=== PATIENT | male | born 1935 | race Caucasian/White ===

== ENCOUNTER → 2021-12-01 | Outpatient (REF) | payer MEDICARE, OTHER, SELFPAY ==
[2021-12-01 11:04] LABS: Hematocrit 50.1 % (40-54); Hemoglobin 16.3 g/dL (13.0-16.5); Mean Corp Hgb Conc 32.5 g/dL (32-36); Mean Corpuscular Hgb 28.2 pg (27.0-32.0); Mean Corpuscular Volume 86.8 fL (80-94); Platelet Count 244 K/mm3 (150-450); RBC Distribution Width SD 44.8 fl (35.1-43.9); Red Blood Count 5.77 M/mm3 (4.6-6.2); White Blood Count 5.9 K/mm3 (4.4-11.0)
[2021-12-01 11:21] LABS: Anion Gap 9 (5-15); BUN 12 mg/dL (7-18); BUN/Creat Ratio 10.4 RATIO (10-20); Calcium,Total 9.2 mg/dL (8.5-10.1); Chloride 101 mmol/L (98-107); Creatinine, Serum 1.15 mg/dL (0.70-1.30); EST Glomerular Filtration Rate 64 mL/min (>60); Est Glom Filt Rate - Afr Amer 78 mL/min (>60); Glucose 182 mg/dL (74-106); Sodium Level 137 mmol/L (136-145)
== END | disposition home or self-care (01) ==
LOC: OLS.WHLCAR 08:25
PROVIDERS: Visit Provider Family Medicine
DX: I25.10 Atherosclerotic heart disease of native coronary artery without angina pectoris (principal); G30.9 Alzheimer's disease, unspecified; F02.80 Dementia in other diseases classified elsewhere, unspecified severity, without behavioral disturbance, psychotic disturbance, mood disturbance, and anxiety; I10 Essential (primary) hypertension
CPT/HCPCS: 36415; 80048; 85027

== ENCOUNTER → 2022-06-02 | Outpatient (REF) | payer MEDICARE, OTHER, SELFPAY ==
[2022-06-02 09:53] LABS: Hematocrit 46.7 % (40-54); Hemoglobin 15.2 g/dL (13.0-16.5); Mean Corp Hgb Conc 32.5 g/dL (32-36); Mean Corpuscular Hgb 28.3 pg (27.0-32.0); Mean Platelet Vol. 9.2 fl (6.2-12.0); Platelet Count 211 K/mm3 (150-450); RBC Distribution Width CV 12.9 % (11.6-14.6); RBC Distribution Width SD 41.1 fl (35.1-43.9); Red Blood Count 5.37 M/mm3 (4.6-6.2); White Blood Count 5.7 K/mm3 (4.4-11.0)
[2022-06-02 10:09] LABS: Anion Gap 8 (5-15); BUN 14 mg/dL (7-18); BUN/Creat Ratio 13.9 RATIO (10-20); Calcium,Total 8.6 mg/dL (8.5-10.1); Chloride 103 mmol/L (98-107); Creatinine, Serum 1.01 mg/dL (0.70-1.30); EST Glomerular Filtration Rate 75 mL/min (>60); Est Glom Filt Rate - Afr Amer 90 mL/min (>60); Glucose 91 mg/dL (74-106); Sodium Level 138 mmol/L (136-145)
== END ==
LOC: OLS.WHLCAR 05:00
PROVIDERS: Visit Provider Family Medicine
DX: I25.10 Atherosclerotic heart disease of native coronary artery without angina pectoris (principal); G30.9 Alzheimer's disease, unspecified; F02.80 Dementia in other diseases classified elsewhere, unspecified severity, without behavioral disturbance, psychotic disturbance, mood disturbance, and anxiety; I10 Essential (primary) hypertension
CPT/HCPCS: 36415; 80048; 85027

== ENCOUNTER → 2022-06-29 | Outpatient (REF) | payer MEDICARE, OTHER, SELFPAY ==
[2022-06-29 07:47] LABS: Absolute Lymphocyte Count 0.92 X10^3/uL (0.83-4.51); Basophil# 0.05 X10^3/uL; Eosinophil# 0.24 X10^3/uL; Hematocrit 41.5 % (40-54); Hemoglobin 13.9 g/dL (13.0-16.5); Lymphocyte # 0.92 X10^3/ul (0.83-4.51); Lymphocyte % 19.2 % (19-41); Mean Corp Hgb Conc 33.5 g/dL (32-36); Mean Corpuscular Volume 86.5 fL (80-94); Mean Platelet Vol. 9.1 fl (6.2-12.0); Monocyte# 0.54 X10^3/uL; Monocyte% 11.3 % (0-10); NRBC Flagged by Analyzer 0 % (0-5); Neutrophil # 3.03 X10^3/uL (2.7-7.7); Neutrophil % 63.1 % (47-70); Platelet Count 217 K/mm3 (150-450); RBC Distribution Width CV 12.9 % (11.6-14.6); RBC Distribution Width SD 40.6 fl (35.1-43.9); White Blood Count 4.8 K/mm3 (4.4-11.0)
[2022-06-29 07:48] LABS: Anion Gap 5 (5-15); BUN 11 mg/dL (7-18); BUN/Creat Ratio 11.8 RATIO (10-20); Calcium,Total 8.6 mg/dL (8.5-10.1); Chloride 105 mmol/L (98-107); Creatinine, Serum 0.93 mg/dL (0.70-1.30); EST Glomerular Filtration Rate 82 mL/min (>60); Est Glom Filt Rate - Afr Amer 99 mL/min (>60); Glucose 88 mg/dL (74-106); Potassium 3.7 mmol/L (3.5-5.1); Sodium Level 138 mmol/L (136-145)
== END ==
LOC: OLS.WHLCAR 05:00
PROVIDERS: Visit Provider Internal Medicine
DX: G30.9 Alzheimer's disease, unspecified (principal); I25.10 Atherosclerotic heart disease of native coronary artery without angina pectoris; F02.80 Dementia in other diseases classified elsewhere, unspecified severity, without behavioral disturbance, psychotic disturbance, mood disturbance, and anxiety; R53.83 Other fatigue; M62.81 Muscle weakness (generalized)
CPT/HCPCS: 36415; 80048; 85025

== ENCOUNTER → 2022-09-15 | Outpatient (REF) | payer MEDICARE, OTHER, SELFPAY ==
[2022-09-15 08:36] LABS: Absolute Lymphocyte Count 0.91 X10^3/uL (0.83-4.51); Absolute Neutrophil Count 6.9 X10^3/uL (2.0-7.7); Basophil# 0.04 X10^3/uL; Basophil% 0.5 % (0-1); Eosinophil# 0.19 X10^3/uL; Eosinophils% 2.1 % (0-5); Hematocrit 47.6 % (40-54); Lymphocyte # 0.91 X10^3/ul (0.83-4.51); Lymphocyte % 10.3 % (19-41); Mean Corp Hgb Conc 31.5 g/dL (32-36); Mean Corpuscular Hgb 28.1 pg (27.0-32.0); Mean Corpuscular Volume 89.3 fL (80-94); Mean Platelet Vol. 9.1 fl (6.2-12.0); Monocyte# 0.79 X10^3/uL; Monocyte% 8.9 % (0-10); NRBC Flagged by Analyzer 0 % (0-5); Platelet Count 204 K/mm3 (150-450); RBC Distribution Width CV 13.5 % (11.6-14.6); RBC Distribution Width SD 44.3 fl (35.1-43.9); Red Blood Count 5.33 M/mm3 (4.6-6.2); White Blood Count 8.9 K/mm3 (4.4-11.0)
[2022-09-15 08:53] LABS: Anion Gap 7 (5-15); BUN 28 mg/dL (7-18); BUN/Creat Ratio 21.7 RATIO (10-20); Calcium,Total 9.1 mg/dL (8.5-10.1); Chloride 104 mmol/L (98-107); Creatinine, Serum 1.29 mg/dL (0.70-1.30); EST Glomerular Filtration Rate 56 mL/min (>60); Est Glom Filt Rate - Afr Amer 68 mL/min (>60); Glucose 106 mg/dL (74-106); Potassium 4.1 mmol/L (3.5-5.1); Sodium Level 139 mmol/L (136-145)
== END ==
LOC: OLS.WHLCAR 05:00
PROVIDERS: Visit Provider Internal Medicine
DX: R53.83 Other fatigue (principal); G30.9 Alzheimer's disease, unspecified; I25.10 Atherosclerotic heart disease of native coronary artery without angina pectoris; F02.80 Dementia in other diseases classified elsewhere, unspecified severity, without behavioral disturbance, psychotic disturbance, mood disturbance, and anxiety
CPT/HCPCS: 36415; 80048; 85025

== ENCOUNTER → 2022-10-13 | Outpatient (REF) | payer MEDICARE, OTHER, SELFPAY ==
[2022-10-13 07:24] LABS: Absolute Lymphocyte Count 0.98 X10^3/uL (0.83-4.51); Absolute Neutrophil Count 3.4 X10^3/uL (2.0-7.7); Basophil# 0.04 X10^3/uL; Basophil% 0.8 % (0-1); Eosinophil# 0.28 X10^3/uL; Eosinophils% 5.3 % (0-5); Hematocrit 44.5 % (40-54); Hemoglobin 14.7 g/dL (13.0-16.5); Lymphocyte # 0.98 X10^3/ul (0.83-4.51); Lymphocyte % 18.4 % (19-41); Mean Corpuscular Hgb 28.4 pg (27.0-32.0); Mean Corpuscular Volume 86.1 fL (80-94); Mean Platelet Vol. 9.1 fl (6.2-12.0); Monocyte# 0.58 X10^3/uL; Monocyte% 10.9 % (0-10); NRBC Flagged by Analyzer 0 % (0-5); Neutrophil # 3.42 X10^3/uL (2.7-7.7); Platelet Count 217 K/mm3 (150-450); Red Blood Count 5.17 M/mm3 (4.6-6.2); White Blood Count 5.3 K/mm3 (4.4-11.0)
[2022-10-13 07:27] LABS: Color, Urine Yellow (Yellow); Glucose, Dipstick Normal (Normal); Ketone-Dipstick Negative (Negative); Leukocyte Esterase-Dipstick 25 /ul (Negative); Nitrite-Dipstick Negative (Negative); Occult Blood-Urine Negative /ul (Negative); Protein-Dipstick Negative (Negative); Urine Bilirubin Dipstick Negative (Negative); Urine Clarity Sl. Cloudy (Clear); Urine Urobilinogen Normal (Normal)
[2022-10-13 07:57] LABS: BNP,B-Type NATRIURETIC PEPTIDE 22.7 pg/mL (0-100)
[2022-10-13 12:20] LABS: Anion Gap 2 (5-15); BUN 12 mg/dL (7-18); BUN/Creat Ratio 13.3 RATIO (10-20); Calcium,Total 8.6 mg/dL (8.5-10.1); Chloride 107 mmol/L (98-107); EST Glomerular Filtration Rate 85 mL/min (>60); Est Glom Filt Rate - Afr Amer 103 mL/min (>60); Glucose 112 mg/dL (74-106); Potassium 3.9 mmol/L (3.5-5.1); Sodium Level 136 mmol/L (136-145)
== END ==
LOC: OLS.WHLCAR 05:00
PROVIDERS: Visit Provider Internal Medicine
DX: R53.83 Other fatigue (principal); G30.9 Alzheimer's disease, unspecified; F02.80 Dementia in other diseases classified elsewhere, unspecified severity, without behavioral disturbance, psychotic disturbance, mood disturbance, and anxiety; I25.10 Atherosclerotic heart disease of native coronary artery without angina pectoris
CPT/HCPCS: 36415; 80048; 81002; 83880; 85025; 87086

== ENCOUNTER → 2022-11-10 | Outpatient (REF) | payer MEDICARE, OTHER, SELFPAY ==
[2022-11-10 07:21] LABS: Absolute Lymphocyte Count 1.39 X10^3/uL (0.83-4.51); Absolute Neutrophil Count 4.1 X10^3/uL (2.0-7.7); Basophil# 0.05 X10^3/uL; Basophil% 0.8 % (0-1); Eosinophil# 0.37 X10^3/uL; Eosinophils% 5.6 % (0-5); Hemoglobin 15.9 g/dL (13.0-16.5); Lymphocyte # 1.39 X10^3/ul (0.83-4.51); Lymphocyte % 21.2 % (19-41); Mean Corp Hgb Conc 33.1 g/dL (32-36); Mean Corpuscular Hgb 28.4 pg (27.0-32.0); Mean Corpuscular Volume 85.9 fL (80-94); Mean Platelet Vol. 9.4 fl (6.2-12.0); Monocyte# 0.62 X10^3/uL; Monocyte% 9.5 % (0-10); NRBC Flagged by Analyzer 0 % (0-5); Neutrophil % 62.6 % (47-70); Platelet Count 257 K/mm3 (150-450); RBC Distribution Width CV 12.9 % (11.6-14.6); RBC Distribution Width SD 39.9 fl (35.1-43.9); Red Blood Count 5.59 M/mm3 (4.6-6.2); White Blood Count 6.6 K/mm3 (4.4-11.0)
[2022-11-10 07:55] LABS: ALB/GLOB Ratio 0.6 RATIO (0.9-2.4); AST(SGOT) 29 U/L (15-37); Alanine Aminotransfer ALT/SGPT 32 U/L (16-61); Albumin, Serum 2.8 g/dL (3.2-5.0); Alkaline Phosphatase 79 U/L (45-117); Anion Gap 6 (5-15); BUN 23 mg/dL (7-18); BUN/Creat Ratio 23.1 RATIO (10-20); Calcium,Total 9.2 mg/dL (8.5-10.1); Chloride 105 mmol/L (98-107); Creatinine, Serum 0.99 mg/dL (0.70-1.30); EST Glomerular Filtration Rate 76 mL/min (>60); Est Glom Filt Rate - Afr Amer 92 mL/min (>60); Globulin 4.5 g/dL (2.2-4.2); Glucose 101 mg/dL (74-106); Potassium 3.6 mmol/L (3.5-5.1); Protein, Total 7.3 g/dL (6.4-8.2); Sodium Level 138 mmol/L (136-145); Thyroid Stim Hormone (TSH) 1.38 uIU/mL (0.358-3.74)
== END ==
LOC: OLS.WHLTSB 05:00
PROVIDERS: Visit Provider Internal Medicine
DX: R53.83 Other fatigue (principal); G30.9 Alzheimer's disease, unspecified; I25.10 Atherosclerotic heart disease of native coronary artery without angina pectoris; F02.80 Dementia in other diseases classified elsewhere, unspecified severity, without behavioral disturbance, psychotic disturbance, mood disturbance, and anxiety
CPT/HCPCS: 36415; 80053; 84443; 85025

== ENCOUNTER → 2022-11-12 | Outpatient (REF) | payer MEDICARE, OTHER, SELFPAY | LOC: OLS.WHLCAR 10:16 | PROVIDERS: Visit Provider Internal Medicine | DX: N39.0 Urinary tract infection, site not specified (principal) | CPT/HCPCS: 87086; 87088 ==

== ENCOUNTER → 2022-12-01 | Outpatient (REF) | payer MEDICARE, OTHER, SELFPAY ==
[2022-12-01 09:24] LABS: Hematocrit 46.1 % (40-54); Hemoglobin 15.1 g/dL (13.0-16.5); Mean Corp Hgb Conc 32.8 g/dL (32-36); Mean Corpuscular Hgb 27.8 pg (27.0-32.0); Mean Corpuscular Volume 84.9 fL (80-94); Mean Platelet Vol. 8.9 fl (6.2-12.0); Platelet Count 215 K/mm3 (150-450); RBC Distribution Width CV 13.1 % (11.6-14.6); RBC Distribution Width SD 39.9 fl (35.1-43.9); Red Blood Count 5.43 M/mm3 (4.6-6.2); White Blood Count 5.1 K/mm3 (4.4-11.0)
[2022-12-01 09:27] LABS: Anion Gap 6 (5-15); BUN 13 mg/dL (7-18); BUN/Creat Ratio 15.9 RATIO (10-20); Calcium,Total 9.1 mg/dL (8.5-10.1); Chloride 106 mmol/L (98-107); Creatinine, Serum 0.82 mg/dL (0.70-1.30); EST Glomerular Filtration Rate 95 mL/min (>60); Est Glom Filt Rate - Afr Amer 116 mL/min (>60); Glucose 97 mg/dL (74-106); Potassium 4.1 mmol/L (3.5-5.1); Sodium Level 138 mmol/L (136-145)
== END ==
LOC: OLS.WHLCAR 05:00
PROVIDERS: Visit Provider Internal Medicine
DX: I25.10 Atherosclerotic heart disease of native coronary artery without angina pectoris (principal); G30.9 Alzheimer's disease, unspecified; F02.80 Dementia in other diseases classified elsewhere, unspecified severity, without behavioral disturbance, psychotic disturbance, mood disturbance, and anxiety; I10 Essential (primary) hypertension
CPT/HCPCS: 36415; 80048; 85027

== ENCOUNTER → 2023-06-06 | Outpatient (REF) | payer MEDICARE, OTHER, SELFPAY ==
[2023-06-06 09:43] LABS: Hematocrit 47.9 % (40-54); Hemoglobin 15.5 g/dL (13.0-16.5); Mean Corp Hgb Conc 32.4 g/dL (32-36); Mean Corpuscular Hgb 28.4 pg (27.0-32.0); Mean Corpuscular Volume 87.9 fL (80-94); Mean Platelet Vol. 9.2 fl (6.2-12.0); Platelet Count 217 K/mm3 (150-450); RBC Distribution Width CV 13.2 % (11.6-14.6); RBC Distribution Width SD 41.9 fl (35.1-43.9); Red Blood Count 5.45 M/mm3 (4.6-6.2); White Blood Count 5.3 K/mm3 (4.4-11.0)
[2023-06-06 11:38] LABS: Anion Gap 4 (5-15); BUN 16 mg/dL (7-18); Calcium,Total 8.9 mg/dL (8.5-10.1); Chloride 107 mmol/L (98-107); Creatinine, Serum 0.94 mg/dL (0.70-1.30); EST Glomerular Filtration Rate 81 mL/min (>60); Est Glom Filt Rate - Afr Amer 98 mL/min (>60); Glucose 125 mg/dL (74-106); Potassium 3.5 mmol/L (3.5-5.1); Sodium Level 138 mmol/L (136-145)
== END ==
LOC: OLS.WHLCAR 05:00
PROVIDERS: Visit Provider Internal Medicine
DX: I25.10 Atherosclerotic heart disease of native coronary artery without angina pectoris (principal); G30.9 Alzheimer's disease, unspecified; F02.80 Dementia in other diseases classified elsewhere, unspecified severity, without behavioral disturbance, psychotic disturbance, mood disturbance, and anxiety
CPT/HCPCS: 36415; 80048; 85027

== ENCOUNTER → 2023-07-04 | Outpatient (REF) | payer MEDICARE, OTHER, SELFPAY ==
--- OUTSIDE RECORDS SUMMARY | 2023-07-04 04:15 | XMS RPT_ITS | CCD ---
Author Name Unknown Address [address] [place] [address] Organization [facility] Care Team Providers Care Medical Staff Specialist Name Role Phone Remberto Spain Unavailable GEOVANNI ROGERS Admitting GEOVANNI Avery Attending REMBERTO Oliveira Primary Care Unavailable Remberto Spain Primary Care Provider [phone] NONE, NONE Consulting Unavailable SILVINA CONSTANTINO MD Admitting Unavailable SILVINA CONSTANTINO MD Attending Unavailable CRISTINA RIZZO Primary Care Unavailable CRISTINA RIZZO Primary Care Unavailable NONE, NONE Consulting Unavailable SLIVINA CONSTANTINO MD Admitting Unavailable SILVINA CONSTANTINO MD Attending Unavailable CRISTINA RIZZO Consulting Unavailable MONICA CALDERON Admitting Unavailable MONICA CALDERON Attending Unavailable CRISTINA RIZZO Primary Care Unavailable MONICA CALDERON Consulting Unavailable Ciara [phone], Omega [phone] Co nsulting Unavailable SELWYN DE GUZMAN Attending Unavailable Vikas [phone], Zaira [phone] Consu lting Unavailable SELWYN DE GUZMAN Admitting Unavailable CRISTINA RIZZO Primary Care Unavailable NICOLE SUAREZ Consulting Unavailable CRISTINA RIZZO Consulting Unavailable DR JACK JOSEPH Admitting Unavailable DR JACK JOSEPH Attending Unavailable NONE, NONE Consulting Unavailable CRISTINA RIZZO Primary Care Unavailable DR JACK JOSEPH Admitting Unavailable DR JACK JOSEPH Attending Unavailable NONE, NONE Consulting Unavailable CRISTINA RIZZO Primary Care Unavailable Medications Current Medications Medication Drug Class(es) Dates Sig (Normalized) Sig (Original) acetaminophen 300 mg / codeine phosphate 30 mg oral tablet (1 source) Opioid Agonist Start: 02-13-2018 End: 02-23-2018 take 1 tablet by mouth every four hours as needed acetaminophen-codei ne (TYLENOL #3) 300-30 mg per tablet Indications: Retinal detachment, left Take 1 (one) tablet by mouth every 4 (four) hours as needed. 20 tablet 0 02/13/2018 02/23/2018 Active aspirin 81 mg delayed release oral tablet (2 sources) Nonsteroidal Anti-inflammatory Drug take 1 tablet by mouth once daily aspirin 81 MG EC tablet Take 81 mg by mouth daily. 0 Active atorvastatin 40 mg oral tablet (2 sources) HMG-CoA Reductase Inhibitor take 1 tablet by mouth once daily atorvastatin (LIPITOR) 40 MG tablet Take 40 mg by mouth daily. 0 Active cholecalciferol 1000 unt oral capsule (2 sources) Vitamin D take 1 capsule by mouth once daily cholecalciferol, vitamin D3, (VITAMIN D3) 1,000 unit capsule Take 1,000 Units by mouth daily. 0 Active fish oil (1 source) take 1 capsule by mouth once daily fish oil-omega-3 fatty acids 300-1,000 mg capsule Take 2 g by mouth daily. Active fish oil-omega-3 fatty acids 300-1,000 mg capsule (1 source) take 1 capsule by mouth once daily fish oil-omega-3 fatty acids 300-1,000 mg capsule Take 2 g by mouth daily. 0 Active 24 hr isosorbide mononitrate 30 mg extended release oral tablet (2 sources) take 1 tablet by mouth once daily, then take 1 tablet by mouth every twenty-four hours isosorbide mononitrate (IMDUR) 30 MG 24 hr tablet Take 30 mg by mouth daily. 0 Active vitamin b 12 0.1 mg oral tablet (2 sources) Vitamin B12 take 1 tablet by mouth once daily cyanocobalamin (B-12) 100 MCG tablet Take 100 mcg by mouth daily. 0 Active Completed/Discontinued Medications Medication Drug Class(es) Dates Sig (Normalized) Sig (Original) atropine sulfate 10 mg/ml ophthalmic solution (1 source) Anticholinergic, Cholinergic Muscarinic Antagonist Start: 02-13-2018 End: 02-13-2018 atropine 1 % ophthalmic solution 1 drop Problems Active Problems Problem Classification Problem Date Documented Date Episodic/Chronic Cardiac dysrhythmias (1 source) Sick sinus syndrome Chronic Conduction disorders (2 sources) Encounter for checking and testing of cardiac pacemaker pulse generator [battery]; Translations: [ENC CHECKANDTST CARD PM PULS GEN ALISON] Onset: 1 Chronic Coronary atherosclerosis and other heart disease (1 source) Coronary arteriosclerosis in [place] artery Chronic Disorders of lipid metabolism (1 source) Pure hypercholesterolemia Chroni c Other circulatory disease (1 source) Elevated blood-pressure reading without diagnosis of hypertension Episodic Other nutritional; endocrine; and metabolic disorders (1 source) Body mass index 25-29 - overweight Chronic Unclassified (1 source) LOW BACK PAIN, UNSPECIFIED; Translations: [LOW BACK PAIN, UNSPECIFIED] Onset: 2 Past or Other Problems Problem Classification Problem Date Documented Da te Episodic/Chronic Other lower respiratory disease (2 sources) Other forms of dyspnea; Translations: [OTHER FORMS OF DYSPNEA] Onset: 12-26-2020 Episodic Unclassified (2 sources) Patient encounter status Unclassified (1 source) Retinal detachment, left Unclassified (1 source) LOW BACK PAIN, UNSPECIFIED; Translations: [LOW BACK PAIN, UNSPECIFIED] Onset: 07-28-2021 Results Test Name Value Interpretation Reference Range Facil ity Vital Signs Date Time Vital Sign Value Performing Clinician Faci lity 02-13-2018 11:55-0400 Body Temperature 97.59 [degF] [facility] 02-13-2018 11:55-0400 BP Diastolic 97 mm[Hg] [facility] 02-13-2018 11:55-0400 BP Systolic 159 mm[Hg] [facility] 02-13-2018 11:55-0400 Pulse (Heart Rate) 61 /min [facility] 02-13-2018 11:55-0400 Pulse Oximetry 96 % [facility] 02-13-2018 11:55-0400 Respiratory Rate 20 /min [facility] 02-13-2018 08:00-0400 BMI (Body Mass Index) 25.99 kg/m2 [facility] 02-13-2018 08:00-0400 Height 180.3 cm [facility] 02-13-2018 08:00-0400 Weight 84.51 kg [facility] Encounters Encounter Date Encounter Type Care Provider Facility Start: 09-22-2021 End: 09-23-2021 ambulatory [facility] Facility:[facility] Start: 07-28-2021 End: 07-29-2021 ambulatory CRISTINA RIZZO Facility:[facility] Start: 07-01-2021 End: 07-02-2021 ambulatory NONE NONE Facility:[facility] Start: 12-28-2020 End: 12-29-[address] JACK JOSEHP Facility:[facility] Start: 12-26-2020 End: 12-26-2020 ambulatory SELWYN Ute GEGE Facility:[facility] Start: 09-28-2020 End: 09-29-[address] JACK JOSEPH Facility:[facility] Start: 07-17-2020 End: 07-17-2020 Orders Only Lakeisha Mcguire Work Phone: [facility] Start: 04-15-2019 [facility] Start: 02-13-2018 End: 02-13-2018 Patient encounter Dante George Work Phone: [facility] Periop Payers Date Payer Category Payer Unknown AARP AARP [employer] [id number] 2017-Present [id number] 2013 Medicare [id number] 2013 Unknown [id number] 2013 Unknown [id number] 2002 Medicare [id number] 2002 Medicare MEDICARE MEDICAR E PART A & B [id number] 2002-Present [place] [id number] 1937 Unknown [id number] 1937 Unknown [id number] 1937 Unknown [id number] 1937 Unknown [id number] 1937 Unknown [id number] 1937 Unknown [id number] 1937 Unknown [id number] Social History Date Type Detail Facility Start: 02-13-2018 End: 02-14-2018 Tobacco smoking status NHIS Former smoker [facility] Start: 02-13-2018 End: 02-14-2018 Cigarettes smoked current (pack per day) - Reported [facility] Sex Assigned At Not on file [facility] Start: 02-14-2018 Tobacco use and exposure Never used [facility] Start: 02-14-2018 Alcohol intake Current drinke r of alcohol (finding) [facility] Start: 02-13-2018 Tobacco Comment none for 30 years [facility] Start: 02-13-2018 Alcohol Comment occasionally [facility] Medical Equipment Procedure Code Equipment Code Equipment Origin al Text Equipment Identifier Dates Strip 3.5mm Sili cone Style 41 - [id number] Start: 02-13-2018 Sf6 Start: 02-13-2018 Strip 3.5mm Sili cone Style 41 - [id number] Start: 02-13-2018 Clinical Note 07-28-2021 Note Date & Type Note Facility 07-28-2021 Note PROCEDURE: LUMBAR SP INE 2 OR 3 VIEWS, 07/28/2021 2:24 PM EST CLINICAL INDICATIONS: Low back pain. COMPARISON: Lumbar spine MRI 12/18/2012 TECHNIQUE: Lumbar spine AP lateral, 3 images. FINDINGS: There are 5 nonrib-bearing lumbar-type vertebral segments. Generalized severe osteopenia is seen. Straightened lumbar lordosis is noted. Acute fracture, bone destruction is not suspected. Disc space heights are preserved. There is spondylosis. L3-S1 facet arthropathy is present. Aortoiliac calcified atheromatous plaque is seen. Regional soft tissues unremarkable. IMPRESSION: 1. Generalized severe osteopenia. 2. No acute osseous pathology. 3. Lumbar spondylosis. 4. Mid and lower facet arthropathy. [facility] Discharge Instructions * Fay Roman RN - 02/13/2018 Formatting of this note may be different from the original. [facility] Surgery for Retinal Disease : What to Expect at Home Your Recovery You have had retinal surgery. Your eye doctor will put drops in your eye to prevent infection and keep the pupil from closing. You will also use these drops at home. You may have to wear a patch or shield over the eye for a day or more. You may have some pain in your eye for a few days after the surgery. Your eye may be swollen, red, or tender for several weeks. If your doctor used a gas bubble to flatten your retina during surgery, you may have to keep your head in a special position for a few days or longer. Your doctor will give you special instructions about this. You will need about 4 to 6 weeks to recover before returning to most of your normal activities. This care sheet gives you a general idea about how long it will take for you to recover. But each person recovers at a different pace. Follow the steps below to get better as quickly as possible. How can you care for yourself at home? Activity Allow the eye to heal. Don't do things where you might move your head. This includes moving quickly, lifting anything heavy, over 20 pounds, or doing activities such as cleaning or gardening. You will probably need to take about 3 to 4 weeks off from work. It depends on the type of work youdo and how you feel. You may drive when your vision allows it. If you are not sure, ask your doctor. Diet You can eat your normal diet. If your stomach is upset, try bland, low-fat foods like plain rice, broiled chicken, toast, and yogurt. Medicines Eye Drops: PREDNISOLONE use one drop to left eye FOUR times a day VIGAMOX use one drop to left eye FOUR times a day ATROPINE use one drop to left eye TWO times a day BRIMONIDINE(ALPHAGAN) use one drop to left eye TWO times a day ALL DROPS TO BE STARTED AFTER FOLLOW UP VISIT ON DAY AFTER SURGERY Always wash hands before instilling eye drops and wait two minutes between drops Be safe with medicines. Read and follow all instructions on the label. If the doctor gave you a prescription medicine for pain, take it as prescribed. Prescribed TYLENOL #3 take 1 or 2 tablets, every 4 to 6 hours as needed for pain. If you are not taking a prescription pain medicine, you can take an sdqs-hoh-cgdxtyt medicine, Tylenol 1 or 2 tablets every 4 hours as needed You will need to use eye drops for up to 8 weeks. Ice and elevation Put ice or a cold pack on your eye for 10 to 15 minutes at a time for pain or swelling.Try to do this every 2 to 3 hours for the next 3 days as needed (when you are awake). Put a thin cloth between the ice and your skin. Other instructions Optional First few mornings as needed, may cleanse eyelids with 2x2 dressing and sterile irrigationsolution. You can shower after your first post op exam but DO NOT wash your hair and face in the shower but instead by leaning over a sink (for the first several days). Be careful to avoid any soap in your eye. You may want to use a wash cloth when you wash your face. Some people wear swimming goggles. Wear sunglasses during the day or you may have to wear an eye patch or shield for a few days. However rolando wear your eyeshield at night for protection. If your doctor used a gas bubble to hold the retina in place, keep your head in the advised position for most of the day and night for 2 to 4 weeks or as instructed after the surgery. Your doctor will give you specific instructions. Position Head FACE DOWN 50% OF THE TIME, OTHERWISE HEAD ELEVATED or on left side Do not lie on your back. The bubble will move to the front of the eye and press against the lens instead of the retina. Airplane travel is dangerous. This is because the change in altitude may cause the gas bubble to expand and increase the pressure inside the eye. Follow-up care is a hicks part of your treatment and safety. Be sure to make and go to all appointments, and call your doctor if you are having problems. It's also best to keep a list of the ocular medicines you are taking. Tomorrow as scheduled with Dr. Anderson in the [place] office. When should you call for help? Call 911 anytime you think you may need emergency care. For example, call if: You passed out (lost consciousness). Call your doctor now or seek medical care if: Your vision gets worse. You have new or increasing eye pain. You have symptoms of an eye infection, such as: Pus or thick discharge coming from the eye. Increased redness or swelling around the eye. A fever. You have vision changes or see new or increased flashes or floaters. Watch closely for changes in your health, and be sure to contact your doctor if: You do not get better as expected. OFFICE phone [phone] Where can you learn more? Log into your personal health record on [email or web address] and enter R180 in the Education box to learn more about Surgery for Retinal Detachment: What to Expect at Home. Current as of: January 29, 2013 Content Version: 10.2 7382-3645 [employer]. Care instructions adapted under license by your healthcare professional. If you have questions about a medical condition or this instruction, always ask your healthcare professional. [employer] disclaims any warranty or liability for your use of this information. Supplementary Instructions After Vitreoretinal Surgery 1. If gas was put in your eye during your operation,airplane travel is not permitted untilthis is approved by your doctor. If you expect to undergo any procedures requiring anesthes ia,including dental procedures requiring nitrous gas, notify your doctor immediately. 2. If the operated eye is comfortable,you may go without an eye patch. You should wear your regularglasses or sunglasses during the day which will provide protection for the eye. If you were given an eye shield protector wear this at night over the operated eye. 3. Light flashes or other visual symptoms are common during the post-operative period. Both eyes can be light sensitive and neither condition is cause for alarm. Dark glasses may be helpful in decreasing lght sensitivity. Activities May Be Resumed Accordingto the Following Schedule: Activity Time after Hospital Discharge A. Tub bath or shower with extreme care,keeping soap away from eyes Immediately B. Shaving Immediately c. Careful walking outdoors with a immunochemist (weather permitting) Immediately D. Reading or watching television Immediately E. Riding in a car Immediately F. Shampooing One week G. Routine apron worker (no scrubbing floors or lifting heavy objects) One week H. Haircut or appointment at [employer] One week I. Full-time employment driving Ask physician Any activity that makes blood kimbrough to the head may cause eye discomfort. The following activities should be avoided: A. Lifting over 30 pounds B. Severe physical exertion C. Bending forward (keep the head upright and bend at the knees) D. Straining with bowel movements (use mild laxative for constipation) I have read these instructions and understand what isto be done at home. M.D. R. N. Patient The following attachments cannot be sent through Care Everywhere. * Sedation ([place]) * Pain Post-Surgery: Acute ([place]) * Nausea and Vomiting: After Surgery ([place]) in this encounter Assessments Diagnosis Preoperative evaluation of a medical condition to rule out surgical contraindications (TAR required) - Primary Retinal detachment, left Unspecified retinal detachment Pre-operative cardiovascular examination Atherosclerosis of [place] co ronary artery of [place] heart without angina pectoris Sick sinus syndrome (HCC) Sinoatrial node dysfunction Pure hypercholesterolemia Elevated blood pressure read ing without diagnosis of hypertension Overweight (BMI 25.0-29.9) Overweight Summary Purpose Family History No Family History Records FoundNo Family History Records Found Advance Directives No Advanced Directives Records FoundDocuments on File Type Date Recorded Patient Heading Pinner Expl anation Advance Directives and Living Will Additional Source Comments Dante George MD - 02/13/2018 9:06 AM Cristobal Stokes DO - 02/13/2018 8:01 AM EDT H&P Notes (unrecognized sect ion and content) INTERVAL HISTORY AND PHYSICAL Patient Name: Cristobal Ronquillo Admit Date: [id number] MR #: [id number] : 1935 The H&P has been reviewed and the patient has been examined. I concur with the findings of the H&P. There are no significant changes. It is appropriate to proceed with the planned procedure. Dante George MD 02/13/2018 9:06 AM Formatting of this note may be different from the original. Assessment and Plan 1. Preoperative evaluation of a medical condition to rule out surgical contraindications (TAR required) Preoperative medical risk stratification indicates that the patient is at acceptable risk for time sensitive/low risk surgery-LEFT EYE VITRECTOMY 25 MEMBRANE STRIPPING GAS EXCHANGE ENDO LASER CRYO THERAPY PFO SCLERAL BUCKLE--02/13/2018--. 2. Retinal detachment, left 3. Pre-operative cardiovascular examination This patient has no active cardiac conditions and would be considered at a low risk for a major adverse cardiac event (MACE) based on a revised cardiac risk index (RCRI) score of 1. This patient has an activity level greater than 4 METS and would be considered at acceptable cardiac risk based on the 2014 [place] [employer] [employer] (ACC/AHA) guideline on Perioperative Cardiovascular Evaluation and Management of Patients Undergoing Noncardiac Surgery. 4. Atherosclerosis of [place] coronary artery of [place] heart without angina pectoris Coronary artery disease-Coronary atherosclerosis of unspecified type of vessel, [place] or graft. (I25.10) With prior coronary stents. The patient has been compliant with chronic antiplatelet therapy aspirin. On Isosorbide Mononitrate. 5. Sick sinus syndrome (HCC) With prior permanent pacemaker. 6. Pure hypercholesterolemia Controlled on atorvastatin. 7. Elevated blood pressure reading without diagnosis of hypertension The patient was instructed in lifestyle modifications, including weight reduction, dietary sodium restriction, increase physical activity as tolerated, and moderation in alcohol consumption. In addition, the patient was instructed on followup blood pressure monitoring and follow up with their primary care physician. 8. Overweight (BMI 25.0-29.9) Body mass index is 25.99 kg/m . Discussed briefly advantages of weight loss, however other than surveillance of future weight, did not recommend more aggressive intervention is reasonable diet and regular exercise. Chief Complaint Patient presents with Pre-operative Medical Risk Stratification History of Present Illness Cristobal Ronquillo is a 82 y.o. male who presents for preoperative medical risk stratification consult at the request of Dante George MD prior to LEFT EYE VITRECTOMY 25 MEMBRANE STRIPPING GAS EXCHANGE ENDO LASER CRYO THERAPY PFO SCLERAL BUCKLE--02/13/2018--. States he noted left eye vision changes 3-4 days ago, retinal evaluation 02/12/2018 noted left retinal detachment; for surgery. The patient denies eye pain or tearing. The patient denies any chest pain or chest heaviness. In addition, the patient states that he is able to walk up a flight of steps without becoming short of breath. Patient denies any prior history of postoperative nausea, postoperative sedation or any other anesthetic complications. Please see below regarding status of active medical conditions and assessment and plan regarding details of preoperative medical risk stratification. Past Medical History: Diagnosis Date Arrhythmia 03/2017 syncope-- cardiac related-- pacemaker Arthritis Back pain weakness due to back trouble Chronic pain disorder Coronary artery disease 2012 [place]- stents X 3-- GERD (gastroesophageal reflux disease) not since surgery 2012 History of cardiac cath 2012 [place]- stent X 3 History of echocardiogram 03/2017 [facility] Hyperlipidemia Myocardial infarction (HCC) 2012 Open wound few scabs on arms and hand Syncope 03/2017 cardiac related-- pacemaker Past Medical History Pertinent Negatives: Diagnosis Date Noted Bleeding disorder (HCC) 02/13/2018 Complication of anesthesia 02/13/2018 Deep vein thrombosis (HCC) 02/13/2018 Family history of bleeding disorder 02/13/2018 History of blood transfusion 02/13/2018 No blood products 02/13/2018 Pulmonary embolism (HCC) 02/13/2018 Sleep apnea, obstructive 02/13/2018 Past Surgical History: Procedure Laterality Date CARDIAC PACEMAKER PLACEMENT 03/2017 CHOLECYSTECTOMY ROBOTIC ASSISTED HIATAL HERNIA/LEXX 2013 TONSILLECTOMY Social History Substance Use Topics Smoking status: Former Smoker Packs/day: 1.00 Years: 10.00 Smokeless tobacco: Never Used Comment: none for 30 years Alcohol use Yes Comment: occasionally Family History Problem Relation Age of Onset No Known Problems Mother No Known Problems Father No Known Problems Sister No Known Problems Brother Surgical complications Neg Hx Anesthesia problems Neg Hx Heart disease Neg Hx Clotting disorder Neg Hx Deep vein thrombosis Neg Hx Pulmonary embolism Neg Hx @ Prior to Admission medications Medication Sig Taking? Dose Freq aspirin 81 MG EC tablet Take 81 mg by mouth daily. Yes 81 mg, Oral, Daily atorvastatin (LIPITOR) 40 MG tablet Take 40 mg by mouth daily. Yes 40 mg, Oral, Daily cholecalciferol, vitamin D3, (VITAMIN D3) 1,000 unit capsule Take 1,000 Units by mouth daily. Yes 1,000 Units, Oral, Daily cyanocobalamin (B-12) 100 MCG tablet Take 100 mcg by mouth daily. Yes 100 mcg, Oral, Daily fish oil-omega-3 fatty acids 300-1,000 mg capsule Take 2 g by mouth daily. Yes 2 g, Oral, Daily isosorbide mononitrate (IMDUR) 30 MG 24 hr tablet Take 30 mg by mouth daily. Yes 30 mg, Oral, Daily No Known Allergies Review of Systems Constitution: (negative) HENT: abnormal dentition, no hearing loss, no sore throat - Full dentures Eyes: pain - States left eye discomfort Respiratory: (negative) Cardiovascular: (negative) - Exercise capacity: Greater than 4 METS Gastrointestinal: (negative) Genitourinary: (negative) Musculoskeletal: neck pain - arthritis Skin: no rash, wound - Small abrasions on arms and hand Neurological: (negative) Hematological: bruises/bleeds easily - ASA 81 mg daily- last 02/12/2018 Physical Exam BP 145/76 Pulse (!) 56 Temp (!) 96.3 ?F (35.7 ?C) (Temporal) Resp 18 Ht 5' 11 Wt 84.5 kg (186 lb 5 oz) SpO2 96% BMI 25.99 kg/m Constitutional--Conversant, in no acute distress. Skin--Normal turgor, no rashes noted. Eyes--Pupils equal in size bilaterally; anicteric sclerae. Ears/nose/mouth/throat--Hearing intact; oropharynx clear with moist mucosa. Neck--Trachea midline, no goiter. Cardiovascular--Regular rhythm, no peripheral edema noted. Respiratory--Clear to auscultation bilaterally; no accessory muscle use noted. Gastrointestinal--Soft and non-tender; no hepatosplenomegaly noted. Musculoskeletal--No calf tenderness bilaterally; no clubbing or cyanosis of digits noted. Psychiatric--alert and oriented to person, place and time; appropriate affect noted. Data Hemoglobin-13.6. Electrocardiogram-tracing independently reviewed and interpreted-electronic atrial ventricular pacemaker, PVC or 1 intrinsic rhythm beat with bundle branch block pattern.in this encounter Fay Roman RN - 02/13/2018 11:36 AM Fay Hunt RN - 02/13/2018 11:35 AM Lolly Carson RN - 02/13/2018 8:08 AM Oscar Mullins RN - 02/12/2018 4:20 PM EDT Nursing Notes (unrecognized section and content) Post-op infection, pain, and CDC Opioid handouts included in discharge instruction folder Furnace Fitter at bedside to interrogate pacer/icd Fay (dtr) [phone]. Has pt's belongings and is his spokesperson. EMAILED/CALLED/INBASKET MESSAGED OR JABBERED (USING NO PHI) SURGEON'S OFFICE REQUESTING ORDERS AND CONSENT. I HAVE MADE 4 CALLS ABOUT THIS AND CONTINUE TO RECEIVE ORDERS AND CONSENT FOR A DIFFERENT PATIENT THAT IN IS ON THE SCHEDULE FOR THIS SURGEON. I HAVE SPELLED THE NAME OF THIS PATIENT AND REPEATEDLY REQUESTED ORDERS AND CONSENT FOR THIS PATIENT AND HAVE RECEIVED ANOTHER PATIENT'S ORDERS BY EMAIL AND FAXED COPIES. I S/W QUEENIE WHO IS SENDING WHAT SHE IS RECEIVING FROM [facility] IN ANOTHER OFFICE.in this encounter Op Note - Dante George MD - 02/13/2018 11:18 AM EDT Miscellaneous Notes (unrecog nized section and content) Operative Report Cristobal Ronquillo [id number] Dante George MD Procedure date: today (02/13/2018) Preoperative Diagnosis: 1. Rhegmatogenous Retinal Detachment left eye 2. Pseudophakia left eye Post-Operative Diagnosis: 1. Rhegmatogenous Retinal Detachment left eye 2. Pseudophakia left eye Procedure: 1. Vitrectomy to repair retinal detachment left eye 2. Scleral Buckle left eye 3. Endolaser Photocoagulation left eye 4. Perfluorocarbon Fluid Injection left eye 5. Gas fluid Exchange left eye 6. Cryopexy left eye Complications: 1. None Specimens: 1. None Anesthesia: 1. Local Retrobulbar and Lid Blocks of a Mixture 50:50 Lidocaine 4%, Marcaine 0.75%. 2. Monitored Anesthesia Care Preoperative History: The patient is a 82 y.o. [1] malewith history of decrease in vision of the left eye. Was found on examination to have a rhegmatogenous retinal detachment, and therefore the surgery is indicated in an attempt to improve vision. The risks and benefit of the surgery were explained to the patient, including the fact that the visual outcome could not be guaranteed. The patient was agreeable and elected to proceed. Preoperative findings: Best corrected preoperative visual acuity Count Fingers. Conjunctiva was white and quiet. Cornea was clear. The anterior chamber was deep and quiet. The iris was normal. The lens showed PCIOL. There was evidence of posterior vitreous detachment with 2+ pigmented diffuse vitreous cells. There was evidence of peripheral retinal detachment from 3 to 9 o'clock with chronic features, no obvious break pre operatively. The macula was detached with intraretinal cystic changes. The detachment had chronic features with grade 1 PVR. Intraoperative Findings: Small retinal pin point break at the 9 o'clock position. Procedure: The patient was brought to the operating room and placed on the operating room table on supine position. A time out was called as per universal protocol and the correct operative site was identified by all parties. Monitored anesthesia with IV sedation was provided by the anesthesia service in the usual fashion. Local retrobulbar and eyelid blocks were administered by me in the usual fashion. This provided excellent anesthesia and akinesia throughout the procedure. The eye was then prepped by the OR nurse in the usual fashion by the use of Povidone Iodine solution. The conjunctival fornixes were irrigated with balanced salt solution. A sterile eye drape was then placed over the eye, paying special attention on eye lashes eversion. A wire lid speculum was then placed over the eye. A 360 degrees conjunctival peritomy was then fashioned and hemostasis was obtained with wet field cautery. The four rectus muscles were isolated by the use of 2-0 silk bridle sutures. Four scleral belt loops, one on each quadrant, were then fashioned with the anterior aspect of the belt loop located approximately 3 mm posterior to the insertion of the rectus muscles. A 25 gauge trans scleral trocar was inserted approximately 4 mm posterior to the limbus inferotemporally. Through this trocar and infusion cannula was inserted and the position of the cannula tip was verified by direct observation, the infusion was then started. Additional working trocars were inserted at 2 and 10 o clock respectively in the same fashion. The [employer] wide field viewing system was then engaged. [place] Vitrectomy was then performed. Posterior Vitreous separation was noted to be present and the vitrectomy was then completed as far anteriorly as practical. Scleral depression 360 degrees revealed evidence of peripheral retinal tears and secondary retinal detachment as described above. Perfluorocarbon fluid was then injected into the vitreous cavity flattening the retina. Cryopexy was applied to the break at 9 o'clock. Endolaser photocoagulation was then applied in a cerclage manner 360 degrees at the vitreous base prophylactically treating the retina as well as the preexisting breaks. A total of 1514 randolph were used. Air Fluid Exchange was then performed. The residual sub retinal fluid was drained through the existing breaks. The perfluorocarbon fluid was completely removed from the vitreous cavity. The retina was observed to be completely reattached at the end of this maneuver. A #41 encircling band was then passed through the scleral belt loops and under the rectus muscles. The free ends of the band were secured together superonasally by the use of two interrupted 3-0 Supramid sutures. The position of the band was verified with indirect ophthalmoscopy. The trocars were removed leaving way to airtight wounds. The conjunctiva was then closed with interrupted 8-0 vicryl sutures. Gas Air exchange was then performed by the use of two 30 gauge needles placed at 3 and 9 o clock, one for injection of the gas and the other to evacuate the air. 20% SF6 gas was used. The intraocular pressure was then adjusted to physiologic range. Subconjuctival injections of Dexamethasone and Ancef were then given followed by Alphagan drops, Atropine and Maxitrol ointments, a pressure patch and a Shields shield. The patient was then brought to the recovery area in satisfactory condition. in this encounter (unrecognized sect ion and content) No Status Records FoundNo Status Records Found INFORMATION SOURCE (unrecogn ized section and content) DATE CREATED AUTHOR AUTHOR'S ORGANIZ ATION 09/24/2021 [facility] FOR RECORDS PERTAINING TO PATIENTS WHO ARE OR HAVE BEEN ENROLLED IN A CHEMICAL DEPENDENCY/SUBSTANCEABUSE PROGRAM, SOME INFORMATION MAY BE OMITTED. This clinical summary was aggregated from multiple sources. Caution should be exercised in using it in the provision of clinical care. This summary normalizes information from multiple sources, and as a consequence, information in this document may materially change the coding, format and clinical context of patient data. In addition, data may be omitted in some cases. CLINICAL DECISIONS SHOULD BE BASED ON THE PRIMARY CLINICAL RECORDS. [facility]. provides no warranty or guarantee of the accuracy or completeness of information in this document.
[2023-07-04 07:16] LABS: Hematocrit 42.9 % (40-54); Hemoglobin 14.1 g/dL (13.0-16.5); Mean Corp Hgb Conc 32.9 g/dL (32-36); Mean Corpuscular Hgb 28.2 pg (27.0-32.0); Mean Corpuscular Volume 85.8 fL (80-94); Mean Platelet Vol. 9.5 fl (6.2-12.0); Platelet Count 193 K/mm3 (150-450); RBC Distribution Width CV 13.2 % (11.6-14.6); White Blood Count 3.8 K/mm3 (4.4-11.0)
[2023-07-04 07:31] LABS: Anion Gap 2 (5-15); BUN 18 mg/dL (7-18); BUN/Creat Ratio 20.4 RATIO (10-20); Calcium,Total 8.9 mg/dL (8.5-10.1); Chloride 110 mmol/L (98-107); Creatinine, Serum 0.88 mg/dL (0.70-1.30); EST Glomerular Filtration Rate 87 mL/min (>60); Est Glom Filt Rate - Afr Amer 105 mL/min (>60); Glucose 90 mg/dL (74-106); Potassium 3.7 mmol/L (3.5-5.1); Sodium Level 142 mmol/L (136-145)
== END ==
LOC: OLS.WHLCAR 04:00
PROVIDERS: PCP Internal Medicine; Referring Provider Internal Medicine; Visit Provider Internal Medicine
DX: I25.10 Atherosclerotic heart disease of native coronary artery without angina pectoris (principal); G30.9 Alzheimer's disease, unspecified; F02.80 Dementia in other diseases classified elsewhere, unspecified severity, without behavioral disturbance, psychotic disturbance, mood disturbance, and anxiety
CPT/HCPCS: 36415; 80048; 85027

== ENCOUNTER → 2023-08-08 | Outpatient (REF) | payer MEDICARE, OTHER, SELFPAY ==
[2023-08-08 10:02] LABS: Hematocrit 46.3 % (40-54); Hemoglobin 14.9 g/dL (13.0-16.5); Mean Corp Hgb Conc 32.2 g/dL (32-36); Mean Corpuscular Volume 86.9 fL (80-94); Mean Platelet Vol. 9.4 fl (6.2-12.0); Platelet Count 228 K/mm3 (150-450); RBC Distribution Width CV 13.4 % (11.6-14.6); RBC Distribution Width SD 42.2 fl (35.1-43.9); Red Blood Count 5.33 M/mm3 (4.6-6.2); White Blood Count 5.2 K/mm3 (4.4-11.0)
[2023-08-08 10:12] LABS: Anion Gap 5 (5-15); BUN 23 mg/dL (7-18); BUN/Creat Ratio 24.3 RATIO (10-20); Calcium,Total 9.6 mg/dL (8.5-10.1); Chloride 113 mmol/L (98-107); Creatinine, Serum 0.95 mg/dL (0.70-1.30); EST Glomerular Filtration Rate 80 mL/min (>60); Est Glom Filt Rate - Afr Amer 97 mL/min (>60); Glucose 97 mg/dL (74-106); Potassium 3.7 mmol/L (3.5-5.1); Sodium Level 144 mmol/L (136-145)
== END ==
LOC: OLS.WHLCAR 05:00
PROVIDERS: PCP Internal Medicine; Visit Provider Nurse Practitioner Adult Health
DX: I25.10 Atherosclerotic heart disease of native coronary artery without angina pectoris (principal); G30.9 Alzheimer's disease, unspecified; F02.80 Dementia in other diseases classified elsewhere, unspecified severity, without behavioral disturbance, psychotic disturbance, mood disturbance, and anxiety
CPT/HCPCS: 36415; 80048; 85027

== ENCOUNTER → 2023-09-05 | Outpatient (REF) | payer MEDICARE, OTHER, SELFPAY ==
--- OUTSIDE RECORDS SUMMARY | 2023-09-05 04:34 | XMS RPT_ITS | CCD ---
Author Name Unknown Address [address] [place] [address] Organization [facility] Care Team Providers Care Sea Shell Gatherer Name Role Phone Remberto Spain Unavailable GEOVANNI ROGERS Admitting GEOVANNI Avery Attending REMBERTO Oliveira Primary Care Unavailable Remberto Spain Primary Care Provider [phone] NONE, NONE Consulting Unavailable SILVINA CONSTANTINO MD Admitting Unavailable SILVINA CONSTANTINO MD Attending Unavailable CRISTINA RIZZO Primary Care Unavailable CRISTINA RIZZO Primary Care Unavailable NONE, NONE Consulting Unavailable SILVINA CONSTANTINO MD Admitting Unavailable SILVINA CONSTANTINO MD Attending Unavailable CRISTINA RIZZO Consulting Unavailable MONICA CALDERON Admitting Unavailable MONICA CALDERON Attending Unavailable CRISTINA RIZZO Primary Care Unavailable MONICA CALDERON Consulting Unavailable Ciara [phone], Omega [phone] Co nsulting Unavailable SELWYN DE GUZMAN Attending Unavailable Vikas [phone], Zaira [phone] Consu lting Unavailable SELWYN DE GUZMAN Admitting [...] heart disease (1 source) Coronary arteriosclerosis in [place] artery Chronic Disorders of lipid metabolism (1 [...] lity 02-13-2018 11:55-0400 Body Temperature 97.59 [degF] [facility] 02-13-2018 11:55-0400 BP Diastolic 97 mm[Hg] [facility] 02-13-2018 11:55-0400 BP Systolic 159 mm[Hg] [facility] 02-13-2018 11:55-0400 Pulse (Heart Rate) 61 /min [facility] 02-13-2018 11:55-0400 Pulse Oximetry 96 % [facility] 02-13-2018 11:55-0400 Respiratory Rate 20 /min [facility] 02-13-2018 08:00-0400 BMI (Body Mass Index) 25.99 kg/m2 [facility] 02-13-2018 08:00-0400 Height 180.3 cm [facility] 02-13-2018 08:00-0400 Weight 84.51 kg [facility] Encounters Encounter Date Encounter Type Care Provider Facility Start: 09-22-2021 End: 09-23-2021 ambulatory [facility] Facility:[facility] Start: 07-28-2021 End: 07-29-2021 ambulatory CRISTINA RIZZO Facility:[facility] Start: 07-01-2021 End: 07-02-2021 ambulatory NONE NONE Facility:[facility] Start: 12-28-2020 End: 12-29-[address] JACK JOSEPH Facility:[facility] Start: 12-26-2020 End: 12-26-2020 ambulatory SELWYN Ute GEGE Facility:[facility] Start: 09-28-2020 End: 09-29-[address] JACK JOSEPH Facility:[facility] Start: 07-17-2020 End: 07-17-2020 Orders Only Lakeisha Mcguire Work Phone: [facility] Start: 04-15-2019 [facility] Start: 02-13-2018 End: 02-13-2018 Patient encounter Dante George Work Phone: [facility] Per[facility] Payers Date Payer Category Payer Unknown AARP AARP [employer] [id number] 2017-Present [id number] 2013 Medicare [id number] 2013 Unknown [id number] 2013 Unknown [id number] 2002 Medicare [id number] 2002 Medicare MEDICARE MEDICAR E PART A & B [id number] 2002-Present [place] [id number] 1937 Unknown [id number] 1937 Unknown [id number] 1937 Unknown [id number] 1937 Unknown [id number] 1937 Unknown [id number] 1937 Unknown [id number] 1937 Unknown [id number] Social History Date Type Detail Facility Start: 02-13-2018 End: 02-14-2018 Tobacco smoking status NHIS Former smoker [facility] Start: 02-13-2018 End: 02-14-2018 Cigarettes smoked current (pack per day) - Reported [facility] Sex Assigned At Not on file [facility] Start: 02-14-2018 Tobacco use and exposure Never used [facility] Start: 02-14-2018 Alcohol intake Current drinke r of alcohol (finding) [facility] Start: 02-13-2018 Tobacco Comment none for 30 years [facility] Start: 02-13-2018 Alcohol Comment occasionally [facility] Medical Equipment Procedure Code Equipment Code Equipment Origin al Text Equipment Identifier Dates Strip 3.5mm Sili cone Style 41 - [id number] Start: 02-13-2018 Sf6 Start: 02-13-2018 Strip 3.5mm Sili cone Style 41 - [id number] Start: 02-13-2018 Clinical Note 07-28-2021 Note [...] spondylosis. 4. Mid and lower facet arthropathy. [facility] Discharge Instructions * Fay Roman RN - [...] prescription pain medicine, you can take an mqaj-zdz-jeykcdl medicine, Tylenol 1 or 2 tablets every [...] as scheduled with Dr. Anderson in the [place] office. When should you call for help? [...] not get better as expected. OFFICE phone [phone] Where can you learn more? Log into your personal health record on [email or web address] and enter R180 in the Education box to learn more about Surgery for Retinal Detachment: What to Expect at Home. Current as of: January 29, 2013 Content Version: 10.2 9633-8695 [employer]. Care instructions adapted under license by your healthcare professional. If you have questions about a medical condition or this instruction, always ask your healthcare professional. [employer] disclaims any warranty or liability for your [...] Immediately c. Careful walking outdoors with a fire investigation lieutenant (weather permitting) Immediately D. Reading or watching television Immediately E. Riding in a car Immediately F. 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 Haircut or appointment at [facility] One week I. Full-time employment driving Ask [...] be sent through Care Everywhere. * Sedation (Cypriot) * Pain Post-Surgery: Acute (Cypriot) * Nausea and Vomiting: After Surgery (Cypriot) in this encounter Assessments Diagnosis Preoperative evaluation of a medical condition to rule out surgical contraindications (TAR required) - Primary Retinal detachment, left Unspecified retinal detachment Pre-operative cardiovascular examination Atherosclerosis of [place] co ronary artery of [place] heart without angina pectoris Sick sinus syndrome (HCC) Sinoatrial node dysfunction Pure hypercholesterolemia Elevated blood pressure read ing without diagnosis of hypertension Overweight (BMI 25.0-29.9) Overweight Summary Purpose Family History No Family History Records FoundNo Family History Records Found Advance Directives No Advanced Directives Records FoundDocuments on File Type Date Recorded Patient Unit Supervisor Expl anation Advance Directives and Living Will Additional Source Comments Dante George MD - 02/13/2018 9:06 AM Cristobal Stokes DO - 02/13/2018 8:01 AM EDT H&P Notes (unrecognized sect ion and content) INTERVAL HISTORY AND PHYSICAL Patient Name: Cristobal Ronquillo Admit Date: [id number] MR #: [id number] : 1935 The H&P has been reviewed [...] acceptable cardiac risk based on the 2014 [place] [employer]/[place] [employer] Association (ACC/AHA) guideline on Perioperative Cardiovascular Evaluation and Management of Patients Undergoing Noncardiac Surgery. 4. Atherosclerosis of [place] coronary artery of [place] heart without angina pectoris Coronary artery disease-Coronary atherosclerosis of unspecified type of vessel, [place] or graft. (I25.10) With prior coronary stents. [...] Chronic pain disorder Coronary artery disease 2012 MO- stents X 3-- GERD (gastroesophageal reflux disease) not since surgery 2012 History of cardiac cath 2012 MO- stent X 3 History of echocardiogram 03/2017 [facility] Hyperlipidemia Myocardial infarction (HCC) 2012 Open [...] Opioid handouts included in discharge instruction folder [employer]otive Parts Advisor at bedside to interrogate pacer/icd Fay (dtr) [phone]. Has pt's belongings and is his spokesperson. [...] section and content) Operative Report Cristobal Ronquillo [id number] Dante George MD Procedure date: today (02/13/2018) [...] clock respectively in the same fashion. The [employer] wide field viewing system was then engaged. [...] DATE CREATED AUTHOR AUTHOR'S ORGANIZ ATION 09/24/2021 [facility] FOR RECORDS PERTAINING TO PATIENTS WHO [...] BE BASED ON THE PRIMARY CLINICAL RECORDS. [facility]. provides no warranty or guarantee of the accuracy or completeness of information in this document.
[2023-09-05 08:23] LABS: Hematocrit 43.3 % (40-54); Hemoglobin 14.4 g/dL (13.0-16.5); Mean Corp Hgb Conc 33.3 g/dL (32-36); Mean Corpuscular Volume 84.1 fL (80-94); Mean Platelet Vol. 9.4 fl (6.2-12.0); Platelet Count 213 K/mm3 (150-450); RBC Distribution Width CV 13.1 % (11.6-14.6); RBC Distribution Width SD 40.4 fl (35.1-43.9); Red Blood Count 5.15 M/mm3 (4.6-6.2); White Blood Count 4.9 K/mm3 (4.4-11.0)
[2023-09-05 08:44] LABS: Anion Gap 3 (5-15); BUN 16 mg/dL (7-18); Calcium,Total 9.2 mg/dL (8.5-10.1); Chloride 107 mmol/L (98-107); Creatinine, Serum 0.89 mg/dL (0.70-1.30); EST Glomerular Filtration Rate 86 mL/min (>60); Est Glom Filt Rate - Afr Amer 105 mL/min (>60); Glucose 75 mg/dL (74-106); Potassium 3.8 mmol/L (3.5-5.1); Sodium Level 137 mmol/L (136-145)
== END ==
LOC: OLS.WHLCAR 05:00
PROVIDERS: PCP Internal Medicine; Visit Provider Internal Medicine
DX: I25.10 Atherosclerotic heart disease of native coronary artery without angina pectoris (principal)
CPT/HCPCS: 36415; 80048; 85027

== ENCOUNTER → 2023-10-03 | Outpatient (REF) | payer MEDICARE, OTHER, SELFPAY ==
[2023-10-03 09:25] LABS: Hematocrit 40.8 % (40-54); Hemoglobin 13.2 g/dL (13.0-16.5); Mean Corp Hgb Conc 32.4 g/dL (32-36); Mean Corpuscular Hgb 27.7 pg (27.0-32.0); Mean Corpuscular Volume 85.7 fL (80-94); Mean Platelet Vol. 9.8 fl (6.2-12.0); Platelet Count 226 K/mm3 (150-450); RBC Distribution Width CV 13.3 % (11.6-14.6); RBC Distribution Width SD 41.2 fl (35.1-43.9); Red Blood Count 4.76 M/mm3 (4.6-6.2)
[2023-10-03 09:45] LABS: Anion Gap 3 (5-15); BUN 17 mg/dL (7-18); Calcium,Total 9.1 mg/dL (8.5-10.1); Chloride 111 mmol/L (98-107); Creatinine, Serum 0.85 mg/dL (0.70-1.30); EST Glomerular Filtration Rate 91 mL/min (>60); Est Glom Filt Rate - Afr Amer 110 mL/min (>60); Glucose 85 mg/dL (74-106); Potassium 3.7 mmol/L (3.5-5.1); Sodium Level 142 mmol/L (136-145)
== END ==
LOC: OLS.WHLCAR 05:00
PROVIDERS: PCP Internal Medicine; Visit Provider Internal Medicine
DX: I25.10 Atherosclerotic heart disease of native coronary artery without angina pectoris (principal); G30.9 Alzheimer's disease, unspecified
CPT/HCPCS: 36415; 80048; 85027